=== PATIENT | female | born 1990 | race African-American/Black ===

== ENCOUNTER → 2018-02-16 | Outpatient (CLI) | payer BC ==
--- NOTE | 2018-02-22 13:01 | USB ---
Reason for exam: clinical finding. History: Family history of breast cancer in maternal aunt at age 45 and breast cancer in paternal cousin at age 35. Indicated problem(s): lump or thickening and pain in the left breast. Physical Findings: Nurse Summary: at area of concern stove tender with palpation. US Breast LT No prior studies available for comparison. Left complete breast ultrasound includes all four quadrants, the retroareolar region and axilla. Finding demonstrates no solid or cystic lesion seen. These results were verbally communicated with the patient and result sheet given to the patient on 02/16/18. ASSESSMENT: Negative, BI-RAD 1 RECOMMENDATION: Breast MRI. Follow-up diagnostic mammogram of the left breast in 6 months.
--- NOTE | 2018-02-22 13:02 | MM ---
Reason for exam: clinical finding. Baseline mammogram. History: Family history of breast cancer in maternal aunt at age 45 and breast cancer in paternal cousin at age 35. Indicated problem(s): lump or thickening and pain in the left breast. Physical Findings: Nurse Summary: Area of concern tender with palpation. MG 3D Diag Mammo W/Cad TSERING Bilateral CC and MLO view(s) were taken. The breast tissue is heterogeneously dense. This may lower the sensitivity of mammography. No suspicious abnormality in the right breast. In the upper outer quadrant posterior depth left breast is a 1.7 cm focal asymytry, This resolves on additional compressions views. Also in the left upper outer quadrant is an architectual distortion approximatly 7.5 cm from the nipple, this resolves on spot compression and lateral views. These results were verbally communicated with the patient and result sheet given to the patient on 02/16/18. ASSESSMENT: Probably benign, BI-RAD 3 RECOMMENDATION: Breast MRI. Dr. Holly notified Dr. Caro Medina about her recommondation for the breast MRI. Follow-up diagnostic mammogram of the left breast in 6 months.
== END | disposition home or self-care (01) ==
LOC: RADMAMWWP 10:48
PROVIDERS: ATTEND Family Medicine
DX: N64.4 Mastodynia (principal); N63.20 Unspecified lump in the left breast, unspecified quadrant
CPT/HCPCS: 77062; 77066

== ENCOUNTER → 2018-03-25 | Outpatient (CLI) | payer BC ==
[2018-03-25 15:22] VITALS: BP 106/71; PULSE 70; RESP 16; TEMP 97.8; BMI 33.8
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
--- NOTE | 2018-03-25 16:02 | P.PCN ---
Date of Procedure: 03/25/18 Preoperative Diagnosis: Fullness left breast upper outer quadrant Postoperative Diagnosis: same Procedure(s) Performed: FNA of left breast Surgeon: Nancy Lobato Pathology: other (breast cytology) Condition: stable Disposition: same day Indications for Procedure: Fullness left breast upper outer quadrant Description of Procedure: The area of the left breast upper outer quadrant was prepped using alcohol. A 21-gauge needle on a 10 mL syringe was used to make multiple passes into the area of concern with a vacuum secondary to pull back on the syringe. Tissue was obtained and sent for cytology. The patient tolerated the procedure in stable condition.
== END ==
LOC: WWCWWP 14:00
PROVIDERS: ATTEND Surgery
DX: R92.8 Other abnormal and inconclusive findings on diagnostic imaging of breast (principal); N64.4 Mastodynia; N60.19 Diffuse cystic mastopathy of unspecified breast; Z80.3 Family history of malignant neoplasm of breast
CPT/HCPCS: 88173

== ENCOUNTER 2019-10-18 00:27 | Emergency (ER) | payer BC, OTHER ==
[2019-10-18] MEDS ORDERED: KETOROLAC 15 MG/ML 1 ML VIAL IVP STA (01:17)
[2019-10-18 02:04] LABS: Appearance,Urine Clear (Clear); Bacteria,Urine Rare /hpf; Basophils # (A) 0.1 k/uL (0-0.2); Basophils % (A) 1 %; Bilirubin,Urine Negative (Negative); Blood,Urine Large (Negative); Color,Urine Yellow; Eosinophils # (A) 0.2 k/uL (0-0.7); Eosinophils % (A) 2 %; Glucose,Urine (UA) Negative (Negative); HCT 38.3 % (34.0-46.0); Hyaline Casts,Urine 1 /lpf (0-2); Ketones,Urine Negative (Negative); Leukocyte Esterase,Urine Negative (Negative); Lymphocytes # (A) 2.4 k/uL (1.0-4.8); Lymphocytes % (A) 28 %; MCH 27.2 pg (25.0-35.0); MCHC 31.3 g/dL (31.0-37.0); MCV 86.6 fL (80.0-100.0); Mean Platelet Volume 7.3; Monocytes # (A) 0.6 k/uL (0-1.0); Monocytes % (A) 7 %; Mucus,Urine Occasional /hpf; Neutrophils # (A) 5.1 k/uL (1.3-7.7); Neutrophils % (A) 60 %; Nitrite,Urine Negative (Negative); Platelet Count 381 k/uL (150-450); Protein,Urine Trace (Negative); RBC 4.43 m/uL (3.80-5.40); RBC,Urine 122 /hpf (0-5); RDW 14.1 % (11.5-15.5); Specific Gravity,Urine 1.032 (1.001-1.035); Squamous Epithelial Cell,Urine 3 /hpf (0-4); Urobilinogen,Urine <2.0 mg/dL (<2.0); WBC 8.5 k/uL (3.8-10.6); WBC,Urine 2 /hpf (0-5)
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
[2019-10-18 02:06] LABS: Amphetamine Screen,Urine Not Detected (NotDetected); Barbiturate Screen,Urine Not Detected (NotDetected); Benzodiazepines Screen,Urine Not Detected (NotDetected); Cocaine Screen,Urine Not Detected (NotDetected); Methadone Screen, Urine Not Detected (NotDetected); Opiate Screen,Urine Not Detected (NotDetected); Oxycodone Screen, Urine Not Detected (NotDetected); Phencyclidine Screen,Urine Not Detected (NotDetected); Tricyclic Antidepressant,Urine Not Detected (NotDetected); Urn Cannabinoid Scrn Not Detected (NotDetected)
[2019-10-18 03:17] VITALS: BP 107/63; PULSE 71; RESP 18; TEMP 98
== END 2019-10-18 03:10 | disposition home or self-care (01) ==
LOC: SUPCPDRO 00:27 → EC 00:27
DX: N92.0 Excessive and frequent menstruation with regular cycle (principal); F32.9 Major depressive disorder, single episode, unspecified; R45.851 Suicidal ideations; Z90.49 Acquired absence of other specified parts of digestive tract; Z87.891 Personal history of nicotine dependence; Z98.51 Tubal ligation status
CPT/HCPCS: 85025; 81001; 81025; 80306; 99284; 96374; G0480; J1885; 36415; 80320

== ENCOUNTER → 2019-11-07 | Outpatient (CLI) | payer OTHER ==
--- NOTE | 2019-11-07 15:02 | US ---
EXAMINATION TYPE: US transvaginal DATE OF EXAM: 11/07/2019 COMPARISON: NONE CLINICAL HISTORY: N92.1 Excessive and frequent menstruation. TECHNIQUE: Transvaginal (TV). EXAM MEASUREMENTS: Uterus: 8.0 x 6.6 x 6.9 cm Endometrial Stripe: .9 cm Right Ovary: 3.1 x 1.7 x 1.8 cm 1. Uterus: Anteverted Bulky heterogenous hypoechoic area seen .9 x .9 x 1.3 cm 2. Endometrium: wnl 3. Right Ovary: wnl 4. Left Ovary: wnl 5. Bilateral Adnexa: wnl 6. Posterior cul-de-sac: wnl IMPRESSION: 1. Uterus is heterogeneous\bulky and there is a 1.3 cm hypoechoic myometrial lesion too small to paige acterize but likely related to a small fibroid. 2. Endometrium measures 9 mm correlate with the phase of the patient's menstrual cycle.
== END | disposition home or self-care (01) ==
LOC: RADUSWWP 14:25
PROVIDERS: ATTEND Obstetrics & Gynecology
DX: N85.2 Hypertrophy of uterus (principal); N85.9 Noninflammatory disorder of uterus, unspecified
CPT/HCPCS: 76830

== ENCOUNTER 2019-11-15 22:42 | Emergency (ER) | payer OTHER ==
[2019-11-15] MEDS ORDERED: KETOROLAC 15 MG/ML 1 ML VIAL IVP STA (23:05)
[2019-11-15] MEDS ORDERED: SODIUM CHLORIDE 0.9% 1,000 ML IV STA (23:06)
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
[2019-11-15 23:51] LABS: Basophils % (A) 0 %; Eosinophils # (A) 0.2 k/uL (0-0.7); Eosinophils % (A) 2 %; HCT 35.7 % (34.0-46.0); HGB 11.3 gm/dL (11.4-16.0); Hypochromasia Slight; Lymphocytes # (A) 2.8 k/uL (1.0-4.8); Lymphocytes % (A) 28 %; MCH 26.7 pg (25.0-35.0); MCHC 31.7 g/dL (31.0-37.0); MCV 84.2 fL (80.0-100.0); Mean Platelet Volume 7.3; Monocytes # (A) 0.6 k/uL (0-1.0); Monocytes % (A) 6 %; Neutrophils # (A) 6.4 k/uL (1.3-7.7); Neutrophils % (A) 63 %; Platelet Count 445 k/uL (150-450); RBC 4.24 m/uL (3.80-5.40); RDW 13.7 % (11.5-15.5); WBC 10.2 k/uL (3.8-10.6)
[2019-11-15 23:57] LABS: Appearance,Urine Clear (Clear); Bilirubin,Urine Negative (Negative); Blood,Urine Large (Negative); Color,Urine Yellow; Glucose,Urine (UA) Negative (Negative); Ketones,Urine Negative (Negative); Leukocyte Esterase,Urine Negative (Negative); Mucus,Urine Rare /hpf; Nitrite,Urine Negative (Negative); Protein,Urine Trace (Negative); RBC,Urine 55 /hpf (0-5); Specific Gravity,Urine 1.022 (1.001-1.035); Squamous Epithelial Cell,Urine 1 /hpf (0-4); Urobilinogen,Urine <2.0 mg/dL (<2.0); WBC,Urine 3 /hpf (0-5)
[2019-11-16 00:02] LABS: ALT 21 U/L (4-34); AST 28 U/L (14-36); African American GFR (CKD) >90 (>60 ml/min/1.73 sqM); Albumin 3.9 g/dL (3.5-5.0); Alkaline Phosphatase 67 U/L (38-126); Amylase 97 U/L (30-110); Anion Gap 6 mmol/L; Blood Urea Nitrogen 8 mg/dL (7-17); Carbon Dioxide 24 mmol/L (22-30); Chloride 108 mmol/L (98-107); Glucose 108 mg/dL (74-99); Non-African American GFR(CKD) >90 (>60 ml/min/1.73 sqM); Potassium 4.3 mmol/L (3.5-5.1); Sodium 138 mmol/L (137-145); Total Bilirubin 0.3 mg/dL (0.2-1.3); Total Protein 7.6 g/dL (6.3-8.2)
--- NOTE | 2019-11-16 00:56 | CT ---
EXAMINATION TYPE: CT abdomen pelvis wo con DATE OF EXAM: 11/16/2019 COMPARISON: None HISTORY: right flank pain CT DLP: 883.7 mGycm Automated exposure control for dose reduction was used. Images obtained from the diaphragm to the floor the pelvis with no contrast. There is small right pleural effusion. Heart size is normal. There is no pericardial effusion. There is minimal pleural thickening and infiltrate right posterior lung base. Liver spleen stomach appear intact. Bile ducts are not dilated. There is no pancreatic mass. There ar e clips from cholecystectomy. There is no adrenal mass. There are low density vague calcifications in the renal papilla bilaterally . There is no hydronephrosis. Ureters are not dilated. There is no retroperitoneal adenopathy. There is no inguinal hernia. Bladder distends smoothly. There is small amount of free fluid in the cul-de-s ac. Uterus is retroverted. Appendix is not definitely seen. There is no sign of thickened appendix. Lumbar vertebra have normal spacing and alignment. Posterior elements are intact. Bony pelvis appears intact. There is no mesenteric edema. There is no ascites or free air. There is no bowel obstruction. IMPRESSION: Enlarged retroverted uterus. This could relate to fibroids. Small amount of free fluid in the pelvis has low density in is probably physiologic. No sign of appendicitis. No evidence of renal stone or ob struction. Faint renal papillary calcifications could relate to minimal medullary sponge kidney.
[2019-11-16 01:44] VITALS: BP 106/66; PULSE 82; RESP 18; TEMP 98.1
== END 2019-11-16 01:44 | disposition home or self-care (01) ==
LOC: EC 22:42
DX: R10.9 Unspecified abdominal pain (principal); M54.9 Dorsalgia, unspecified; Q61.5 Medullary cystic kidney; D25.9 Leiomyoma of uterus, unspecified; Z87.440 Personal history of urinary (tract) infections; Z90.49 Acquired absence of other specified parts of digestive tract; Z98.890 Other specified postprocedural states; Z87.891 Personal history of nicotine dependence
CPT/HCPCS: 36415; 80053; 82150; 83690; 85025; 81001; 81025; 96374; 96361; 99284; J1885; 74176

== ENCOUNTER 2020-10-26 13:22 | Emergency (ER) | payer OTHER ==
[2020-10-26 13:35] VITALS: RESP 18; TEMP 98.8
[2020-10-26] MEDS ORDERED: KETOROLAC 15 MG/ML 1 ML VIAL IVP STA (14:03)
[2020-10-26] MEDS ORDERED: ONDANSETRON 4 MG/2 ML VIAL IVP STA (14:04)
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
[2020-10-26 15:59] VITALS: BP 105/71; PULSE 64
== END 2020-10-26 15:59 | disposition home or self-care (01) ==
LOC: EC 13:22
DX: N83.202 Unspecified ovarian cyst, left side (principal); Z87.891 Personal history of nicotine dependence; Z82.49 Family history of ischemic heart disease and other diseases of the circulatory system
CPT/HCPCS: 96374; 96375; 99284; J2405; J1885

== ENCOUNTER → 2022-11-27 | Outpatient (CLI) | payer OTHER ==
--- NOTE | 2022-11-27 08:13 | MM ---
Reason for Exam: Follow-up at short interval from prior study. Last mammogram was performed 4 year(s) and 9 month(s) ago. Patient History: Menarche at age 9. First Full-Term at age 16. Premenopausal. Paternal cousin had breast cancer, age 35. Maternal aunt had breast cancer, age 45. Prior Study Comparison: 02/16/2018 Bilateral Diagnostic Mammogram, [facility]. Tissue Density: The breast tissue is heterogeneously dense. This may lower the sensitivity of mammography. Findings: Analyzed By CAD. No evidence for mass or distortion. No suspicious calcifications seen. Overall Assessment: Negative, BI-RAD 1 Management: Screening Mammogram of both breasts at age 38. . Results were given to the patient verbally at the time of exam. Patient should continue monthly self-breast exams. A clinical breast exam by your physician is recommended on an annual basis. This exam should not preclude additional follow-up of suspicious palpable abnormalities. Note on Josseilne scores and lifetime risk: 1. A Josseline score greater than 3% is considered moderate risk. If this is the case, consider specialist referral to assess eligibility for a risk reducing agent. 2. If overall lifetime risk for the development of breast cancer is 20% or higher, the patient may qualify for future screening with alternating mammogram and breast MRI. Electronically signed and approved by: Maurice Salgado M.D. Radiologis
== END | disposition home or self-care (01) ==
LOC: RADMAMWWP 07:35
PROVIDERS: ATTEND Family Medicine
DX: R92.333 Mammographic heterogeneous density, bilateral breasts (principal); Z80.3 Family history of malignant neoplasm of breast
CPT/HCPCS: 77066; G0279; 77062